=== PATIENT | male | born 1945 | race Hispanic/Latino ===

== ENCOUNTER → 2025-05-14 | Outpatient (CLI) | payer MEDICARE ==
[~2025-05-14] MED LIST: REGADENOSON 0.4 MG/5 ML PF SYG IVP ONE
[2025-05-14] MEDS: REGADENOSON 0.4 MG/5 ML PF SYG IVP ONE (16:40)
--- NOTE | 2025-05-15 17:38 | HMCSR ---
APPROVED REPORT Height: 5 ft 6in Weight: 165 lbs TEST INDICATIONS CAD The imaging protocol used to acquire images was Rest Tc-99m/stress Tc-99m 1 day Consent: The procedure was explained and understood by the patient. Informerd consent was witnessed Mary Jane Menon RN First, low dose rest was performed then high dose stress. RESTING DATA: The resting ekg shows: NSR Rest SPECT myocardial perfusion imaging was performed in supine position minutes following the intra venous injection of 11 mCi of Tc-99 Sestamibi. Time of rest injection: Date: 05/14/2025 Time of rest imaging: Date: 05/14/2025 PHARMACOLOGIC STRESS: Pharmacologic stress test was performed by injecting regadenoson 0.4 mg IV push followed by the intra venous injection of 30 mCi of Tc-99 Sestamibi. Time of stress injection: Date: 05/14/2025 Time of stress imaging: Date: 05/14/2025 Heart Rate at time of stress injection: 56 bpm. The images were gated to evaluate regional wall motion and calculate left ventricular ejection fracti on. STRESS DETAILS Reason for Termination: Infusion complete Stress Symptoms: Stomach Pain Max HR Achieved: 86 bpm % of APMHR Achieved: 71 Max Blood Pressure: 142/66 mmHg Stress ECG: NSR LEFT VENTRICLE Size: The left ventricular size is normal. Systolic Function:The left ventricular systolic function is hyperdynamic. Wall Motion: No regional wall motion abnormalities noted. The left ventricular ejection fraction was calculated to be 93%.TID = . LV PERFUSION The rest and stress images show normal perfusion. Conclusion The left ventricular size is normal. The left ventricular systolic function is hyperdynamic. No regional wall motion abnormalities noted. The rest and stress images show normal perfusion. The left ventricular ejection fraction was calculated to be 93%.
== END | disposition home or self-care (01) ==
LOC: RAH 10:37
PROVIDERS: ATTEND Internal Medicine Cardiovascular Disease
DX: I25.10 Atherosclerotic heart disease of native coronary artery without angina pectoris (principal); I10 Essential (primary) hypertension
CPT/HCPCS: 78452; 93017; J2785; A9500 ×2